=== PATIENT | male | born 1970 | race Caucasian/White ===

== ENCOUNTER 2016-11-18 19:12 | Emergency (ER) | payer OTHER | END 2016-11-18 22:10 | disposition home or self-care (01) | LOC: ER 19:12 | DX: K75.9 Inflammatory liver disease, unspecified (principal); K74.60 Unspecified cirrhosis of liver; R17 Unspecified jaundice; K21.9 Gastro-esophageal reflux disease without esophagitis; E66.9 Obesity, unspecified; G47.30 Sleep apnea, unspecified; F17.210 Nicotine dependence, cigarettes, uncomplicated; Z79.899 Other long term (current) drug therapy | CPT/HCPCS: 36415; 96361; 96374; Q9967 ==

== ENCOUNTER 2016-11-21 14:38 | Emergency (ER) | payer OTHER | END 2016-11-21 18:17 | disposition short-term general hospital (02) | LOC: ER 14:38 | DX: E86.0 Dehydration (principal); R17 Unspecified jaundice; N28.9 Disorder of kidney and ureter, unspecified; E87.6 Hypokalemia; E83.42 Hypomagnesemia; E87.1 Hypo-osmolality and hyponatremia; F17.210 Nicotine dependence, cigarettes, uncomplicated; Z88.1 Allergy status to other antibiotic agents | CPT/HCPCS: 36415; 96361; 96365; 96375; J2550 ==